=== PATIENT | male | born 1985 | race African-American/Black ===

== ENCOUNTER 2017-11-04 10:37 | Emergency (ER) | payer SELFPAY ==
[~2017-11-04] VITALS: Ht 180.3 cm; Wt 57.8 kg
[2017-11-04 10:39] VITALS: Ht 180.3 cm; Wt 57.8 kg
[2017-11-04] MEDS ORDERED: CEFTRIAXONE 250 MG INJ IM ONE (13:30)
[2017-11-04] MEDS ORDERED: AZITHROMYCIN 250 MG TAB PO ONE (13:30)
--- NOTE | 2017-11-04 13:33 | ERD ---
ER Documentation Chief Complaint Chief Complaint burning urination , needs refill on anxiety meds HPI 32-year-old male who presents emergency department for a burning urination, penile discharge for about 3-4 days. Sexually active with one partner. His partners no symptoms. Also asking for a refill of his Xanax. Stated that he was from [place] and she was not able to bring his Xanax medication. Denies headache, dizziness, blurry vision, neck pain, shoulder pain, chest pain, back pain, abdominal pain, nausea, vomiting, constipation, diarrhea, trauma, injury, falls, penile lesion, recent antibiotic use in the last 3 months, fever, chills. ROS All systems reviewed and are negative except as per history of present illness. Physical Exam Vitals Vital Signs Date Time Temp Pulse Resp B/P Pulse Ox O2 Delivery O2 Flow Rate FiO2 11/04/17 10:39 97.7 58 18 135/75 100 Physical Exam Const: Well-appearing. Not in respiratory for acute distress. Head: Atraumatic Eyes: Normal Conjunctiva ENT: Normal External Ears, Nose and Mouth. Neck: Full range of motion..~ No meningismus. Resp: Clear to auscultation bilaterally Cardio: Regular rate and rhythm, no murmurs Abd: Soft, non tender, non distended. Normal bowel sounds. : No lesions/rashes/hives/vesicular lesions. No penile bleeding. Skin: No petechiae or rashes Back: No midline or flank tenderness. No CVA tenderness. Ext: No cyanosis, or edema Neur: Awake and alert Psych: Normal Mood and Affect Results 24 hrs Laboratory Tests Test 11/04/17 13:31 Urine Color YELLOW Urine Clarity CLEAR Urine pH 5.0 Urine Specific [place] 1.028 Urine Ketones NEGATIVEmg/dL Urine Nitrite NEGATIVEmg/dL Urine Bilirubin NEGATIVEmg/dL Urine Urobilinogen 1+mg/dL Urine Leukocyte Esterase NEGATIVELeu/ul Urine Microscopic RBC 6/HPF Urine Microscopic WBC 0/HPF Urine Hemoglobin 1+mg/dL Urine Glucose 3+mg/dL Urine Total Protein NEGATIVEmg/dl Current Medications Medications (Trade) Dose Ordered Sig/Deo Route PRN Reason Start Time Stop Time Status Last Admin Dose Admin Ceftriaxone Sodium (Rocephin) 250 mg ONCE ONCE IM 11/04/17 13:30 11/04/17 13:31 DC 11/04/17 13:39 Azithromycin (Zithromax) 1,000 mg ONCE ONCE PO 11/04/17 13:30 11/04/17 13:31 DC 11/04/17 13:40 Lidocaine (Xylocaine 2% (Mdv) 20 ml) 20 ml STK-MED ONCE .ROUTE 11/04/17 13:34 11/04/17 13:35 DC Procedures/MDM Treatment: Ceftriaxone IM. Azithromycin p.o. Xanax. Reevaluation: Denies pain. No episode of emesis here in the emergency department. Differential: I have high suspicion for drug-seeking behavior of this patient. I have low suspicion for sepsis, nephrolithiasis, pyelonephritis given the vital signs, patient is well-appearing, no CVA tenderness. Final diagnosis: STD symptoms. Medication refill. Follow-up with PCP in the next 3-4 days. Come back here in the emergency department for any new symptoms or any worsening of symptoms. All questions and concerns are answered. Patient verbalized understanding and agreed with the plan of care. Hemodynamically stable on discharge. Departure Diagnosis: Primary Impression: Multiple complaints Additional Impressions: Medication refill STD exposure Condition: Stable Additional Instructions: Follow-up with PCP in the next 3-4 days. Come back here in the emergency department for any new symptoms or any worsening of symptoms. All questions and concerns are answered. Patient verbalized understanding and agreed with the plan of care. ROHITH HENDERSON Nov 04, 2017 13:33
[2017-11-04] MEDS ORDERED: LIDOCAINE 2% (MDV) 20 ML INJ ONE (13:34)
[2017-11-04 14:01] LABS: ADD UMIC YES; UR ASCORBIC ACID NEGATIVE (NEGATIVE); UR BILIRUBIN (Dip) NEGATIVE (NEGATIVE); UR BLOOD (Dip) 1+ mg/dL (NEGATIVE); UR CLARITY CLEAR (CLEAR); UR COLOR YELLOW (YELLOW); UR GLUCOSE (Dip) 3+ mg/dL (NEGATIVE); UR KETONES (Dip) NEGATIVE (NEGATIVE); UR LEUKOCYTE ESTERASE (Dip) NEGATIVE Leu/ul (NEGATIVE); UR NITRITE (Dip) NEGATIVE (NEGATIVE); UR RBC 6 /HPF (0-5); UR SPECIFIC GRAVITY (Dip) 1.028 (1.003-1.030); UR TOTAL PROTEIN (Dip) NEGATIVE (NEGATIVE); UR UROBILINOGEN (Dip) 1+ mg/dL (NEGATIVE)
== END 2017-11-04 14:44 | disposition home or self-care (01) ==
LOC: FTE 10:37
DX: R30.0 Dysuria (principal); R36.9 Urethral discharge, unspecified; Z76.0 Encounter for issue of repeat prescription; Z20.2 Contact with and (suspected) exposure to infections with a predominantly sexual mode of transmission
CPT/HCPCS: 81001; 87086; 87591; 96372; 99284; J0696